=== PATIENT | female | born 1980 | race Hispanic/Latino ===

== ENCOUNTER 2024-02-10 19:56 | Emergency (ER) | payer SELFPAY ==
[~2024-02-10] VITALS: Ht 154.9 cm; Wt 49.9 kg
[2024-02-10 20:03] VITALS: PULSE 84; RESP 16; TEMP 98.6
[2024-02-10] MEDS ORDERED: ONDANSETRON ODT4 MG PO (20:47)
[2024-02-10] MEDS: ONDANSETRON HCL 4 MG ORAL DISINTEGRATING TAB PO ONE (20:52)
[2024-02-10 20:54] VITALS: BP 177/96; PULSE 84; RESP 16; TEMP 98.3; O2SAT 99
== END 2024-02-10 20:58 | disposition home or self-care (01) ==
LOC: FSED 20:04
DX: R11.2 Nausea with vomiting, unspecified (principal); B34.9 Viral infection, unspecified; R05.9 Cough, unspecified; R19.7 Diarrhea, unspecified; I10 Essential (primary) hypertension; F17.210 Nicotine dependence, cigarettes, uncomplicated
CPT/HCPCS: 99283; Q0162